=== PATIENT | female | born 2000 | race Caucasian/White ===

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

== ENCOUNTER 2020-01-12 19:12 | Outpatient (CLI) | payer MEDICAID ==
[2020-01-12] VITALS (8 sets, daily range): BP systolic 102–122; BP diastolic 50–75
[~2020-01-12] VITALS: Ht 165.1 cm; Wt 85.0 kg
--- NOTE | 2020-01-12 19:18 | NUR ---
KILO MEDELLIN presented to unit via ambulation from ED, with c/o Bra[place]en Arnold CONTRACTIONS and vomiting. KILO MEDELLIN weighed, gowned, voided, and to bed. EFHM and TOCO applied, VS taken. KILO MEDELLIN oriented to bed controls, call light, TV, heat, and A/C controls.
[2020-01-12] MEDS ORDERED: D5 LR IV SOLUTION 1,000 ML IV SCH (20:00)
[2020-01-12] MEDS ORDERED: ONDANSETRON 4 MG/2 ML (SDV) Z0FRAN IVP ONE (20:00)
[2020-01-12 21:22] LABS: BILIRUBIN,URINE NEGATIVE (NEGATIVE); CLARITY,URINE CLEAR; COLOR,URINE YELLOW; GLUCOSE, URINE (UA) NEGATIVE (NEGATIVE); KETONES,URINE 2+ (NEGATIVE); LEUKOCYTE ESTERASE ,URINE 1+ (NEGATIVE); NITRITE,URINE NEGATIVE (NEGATIVE); PH,URINE 6.5 (5-9); PROTEIN,URINE NEGATIVE (NEGATIVE)
[2020-01-12 21:29] LABS: BACTERIA,URINE TRACE /HPF; SQUAMOUS EPITHELIAL CELL,UR 0-2 /HPF; WBC,URINE RARE /HPF
--- NOTE | 2020-01-12 22:10 | NUR ---
Discharge instructions discussed with pt. Pt denies any questions. Signature sheet signed, placed on chart. Pt ambulating off unit to private vehicle at time. No distress noted.
--- NOTE | 2020-01-14 09:25 | Physician Query-Final Dx ---
NATALYA TONY 01/14/20 0925: Clinic Account Progress/Dx Physician Query: Please give diagnosis Please include # weeks gestation Date of Service Jan 12, 2020 at 19:12 ROZ REINA MD 01/14/20 1136: Clinic Account Progress/Dx DIAGNOSIS: Diagnosis False labor at 35 weeks gestation NATALYA TONY Jan 14, 2020 09:25 ROZ REINA MD Jan 14, 2020 11:36
== END 2020-01-12 22:10 | disposition home or self-care (01) ==
LOC: WSo 19:12 → LDRP 19:13 → WSo 22:10
PROVIDERS: ATTEND Obstetrics & Gynecology
DX: O47.03 False labor before 37 completed weeks of gestation, third trimester (principal); Z3A.35 35 weeks gestation of pregnancy
CPT/HCPCS: 81000

== ENCOUNTER 2020-01-28 07:00 | Inpatient (IN) | payer MEDICAID ==
[~2020-01-28] VITALS: Ht 165.1 cm; Wt 85.6 kg
[2020-01-28] VITALS (52 sets, daily range): BP systolic 100–141; BP diastolic 50–98
--- NOTE | 2020-01-28 07:12 | NUR ---
KILO MEDELLIN presented to unit via ambulation, accompanied by s/o ,for scheduled IOL. Pt. weighed, gowned, voided, and to bed. EFHM and TOCO applied, VS taken. Pt. oriented to bed controls, call light, TV, heat, and A/C controls.
[2020-01-28] MEDS ORDERED: OXYTOCIN PRE-MIX DRIP 500 ML IV ONE (07:24)
[2020-01-28] MEDS ORDERED: D5 LR IV SOLUTION 1,000 ML IV ONE (07:24)
[2020-01-28] MEDS ORDERED: OXYTOCIN PRE-MIX DRIP 500 ML IV SCH ×2 (07:27→18:48)
[2020-01-28] MEDS: D5 LR IV SOLUTION 1,000 ML IV SCH ×2 (07:32→14:12)
--- NOTE | 2020-01-28 07:32 | NUR ---
#20g IV to Lt.hand x1 attempt by this RN. site patent, secured with opsite. admission labs collected from site prior to IVF's infusing. pt tolerated well.
--- NOTE | 2020-01-28 07:34 | History & Physical ---
History and Physical Date Seen by Provider: Jan 28, 2020 Time Seen by Provider: 07:31 This patient is a 19-year-old 2 para 1 female with an EDC of February 13, 2020 putting her now 38 weeks gestation. Her is complicated by thrombocytopenia. Her platelet count has been as low as 93,000 with last few weeks most recent was just over 100,000. CBC is pending today. GBS culture was negative. Patient presents for induction of labor due to her thrombocytopenia. She denies rupture membranes or bleeding. Allergies are to Honey and Zoloft Medications are vitamins Medical surgical and social histories are per the antepartum record HEENT exam is normal Neck is supple no lymphadenopathy no thyromegaly Abdomen gravid soft nontender nondistended Extremities show no clubbing or cyanosis. There is no Homans sign. Pelvic exam is pending Assessment and plan term at 38 weeks gestation with history of thrombocytopenia. Patient is admitted now for induction of labor. We anticipate a vaginal delivery. Platelet count is pending 38 week gestation with thrombocytopenia Allergies and Home Medications Allergies Coded Allergies: honey (Verified Allergy, Unknown, 06/21/19) sertraline (Verified Allergy, Unknown, 07/30/18) Home Medications Vits #93/Iron Fum/FA 1 Each Tablet, 1 EACH PO DAILY, (Reported) Patient Home Medication List Home Medication List Reviewed: Yes ROZ REINA MD Jan 28, 2020 07:34
[2020-01-28 07:58] LABS: BASOPHILS % (AUTO) 0 % (0-10); EOSINOPHILS # (AUTO) 0.1 10^3/uL (0.0-0.3); EOSINOPHILS % (AUTO) 1 % (0-10); HEMATOCRIT 29 % (35-52); HEMOGLOBIN 9.8 G/DL (11.5-16.0); LYMPHOCYTES # (AUTO) 1.8 X 10^3 (1.0-4.0); LYMPHOCYTES % (AUTO) 24 % (12-44); MEAN CORPUSCULAR HEMOGLOBIN 30 PG (25-34); MEAN CORPUSCULAR HGB CONC 33 G/DL (32-36); MEAN CORPUSCULAR VOLUME 90 FL (80-99); MEAN PLATELET VOLUME 13.4 FL (7.4-10.4); MONOCYTES # (AUTO) 0.6 X 10^3 (0.0-1.0); MONOCYTES % (AUTO) 8 % (0-12); NEUTROPHILS % (AUTO) 68 % (42-75); PLATELET COUNT 110 10^3/uL (130-400); RED CELL DISTRIBUTION WIDTH 15.4 % (10.0-14.5); WHITE BLOOD COUNT 7.5 10^3/uL (4.3-11.0)
[2020-01-28] MEDS ORDERED: ONDANSETRON 4 MG/2 ML (SDV) Z0FRAN IVP ONE (08:30)
[2020-01-28] MEDS ORDERED: ONDANSETRON 4 MG/2 ML (SDV) Z0FRAN ONE (08:33)
[2020-01-28] MEDS ORDERED: LACTATED RINGERS 1,000 ML IV ONE ×3 (12:02→12:57)
[2020-01-28] MEDS ORDERED: BUPIVACAINE 0.25% 30 ML (SENSORCAINE) VIAL ONE (12:59)
[2020-01-28] MEDS ORDERED: LIDOCAINE PF 2% 5 ML (XYLOCAINE) VIAL ONE (12:59)
[2020-01-28] MEDS ORDERED: fentaNYL 2 mcg/ml BUPIVA 0.125 100 ML ONE (12:59)
--- NOTE | 2020-01-28 12:59 | NUR ---
PEPE Patel here for epidural placement. Procedure explained, consent reviewed and signed by anesthesia. Questions answered to patient's satisfaction. Time out taken to verify correct patient/procedure. 1301- Patient up to side of bed, assisted into sitting position. Betadine prep done x3 and sterile drape applied. 1311- Local done, see anesthesia record. 1315-Test dose given, see anesthesia record for drug and dosage. Epidural catheter secured in place. Epidural placement complete. 1320- Assisted back into bed, monitors adjusted. Epidural dosed, see anesthesia record. 1323- Epidural of Sufenta/Fentanyl @12cc/hr stated per pump. Patient tolerated procedure well.
[2020-01-28] MEDS ORDERED: EPIDURAL (fentaNYL 2 MCG/ML BUPIVA 0.125%)100 ML BAG EPI PRN (13:00)
[2020-01-28] MEDS ORDERED: ONDANSETRON 4 MG/2 ML (SDV) Z0FRAN IV PRN (13:00)
[2020-01-28] MEDS ORDERED: NALOXONE 0.4 MG/ML 1 ML (NARCAN) VIAL IV PRN (13:00)
[2020-01-28] MEDS ORDERED: fentaNYL INJECTION 100 MCG/2 ML AMP ONE (13:00)
--- NOTE | 2020-01-28 17:10 | NUR ---
was called with SVE update.
[2020-01-28] MEDS ORDERED: KETOROLAC 30 MG/ML VIAL ONE (18:49)
[2020-01-28] MEDS: KETOROLAC 30 MG/ML VIAL IVP SCH ×2 (18:51→23:56)
[2020-01-28] MEDS ORDERED: BENZOCAINE/MENTHOL (DERMOPLAST) 60 ML CAN TP PRN (19:00)
[2020-01-28] MEDS ORDERED: TETANUS,DIPTH,PERTUSS P/F (BOOSTRIX) 0.5 ML VIAL IM ONE (19:00)
[2020-01-28] MEDS ORDERED: oxyCODONE/APAP 5/325MG (PERCOCET 5) TABLET PO PRN (19:00)
[2020-01-28] MEDS ORDERED: ONDANSETRON 4 MG/2 ML (SDV) Z0FRAN IVP PRN (19:00)
[2020-01-28] MEDS ORDERED: MEASLES,MUMPS,RUBELLA 1 EA INJ SC ONE (19:00)
--- NOTE | 2020-01-28 19:18 | NUR ---
report given to NICOLA Serrano.
[2020-01-28] MEDS ORDERED: WITCH HAZEL(TUCKS) 40 EA JAR TOP PRN (20:00)
[2020-01-28] MEDS: DOCUSATE SODIUM 100 MG (COLACE) CAP PO SCH (20:16)
--- NOTE | 2020-01-29 03:03 | OPERATIVE REPORT ---
DATE OF SERVICE: 01/28/2020 DELIVERY NOTE The patient delivered by term spontaneous vaginal delivery a viable male with Apgars of 8 and 9 at 1 and 5 minutes respectively, weight of 6 pounds 6 ounces, time of 17:29 and a cord blood pH is pending. The infant was delivered over an intact perineum under epidural analgesia. A single nuchal cord was easily released and the delivery completed. The was bulb suctioned on delivery of the head on completion of delivery. The umbilical cord when pulseless was doubly clamped, the father cut the cord, the baby was passed to mom's abdomen. Cord bloods were obtained. The placenta delivered spontaneously Morse. It was normal with a 3-vessel cord. The cervix, vagina, rectum, and perineum were examined and found intact, except for superficial bilateral periurethral abrasions that were hemostatic and did not require repair. Sponge and needle counts were correct on completion of the delivery and the post-delivery inspection. Blood loss was minimal in the range of 25 to 30 mL. The patient tolerated the delivery well and remained in the LDR for recovery. The baby remained with the mom. Job ID: [id number] DocumentID: [id number] Dictated Date: 01/28/2020 17:49:38 Crop Quantitative Geneticist Date: 01/29/2020 03:02:14 Dictated By: ROZ REINA MD
[2020-01-29 04:50] VITALS: BP 105/66
[2020-01-29] MEDS: KETOROLAC 30 MG/ML VIAL IVP SCH (07:24)
--- NOTE | 2020-01-29 08:30 | NUR ---
DR. ARANGO IN TO SEE . PLAN FOR CIRCUMCISION.
[2020-01-29] MEDS: DOCUSATE SODIUM 100 MG (COLACE) CAP PO SCH ×2 (08:32→20:49)
--- NOTE | 2020-01-29 08:34 | Anesthesia-Regional Post-Op ---
Regional Patient Condition Mental Status: Alert, Oriented x3 Circulation: Same as Pre-Op Headache: Absent Sensation: Full Recovery Motor Block: Absent Post Op Complications Complications None Follow Up Care/Instructions Patient Instructions None needed. Anesthesia/Patient Condition Patient is doing well, no complaints, stable vital signs, no apparent adverse anesthesia problems. No complications reported per nursing. IVA ILN CRNA Jan 29, 2020 08:34
[2020-01-29 08:45] VITALS: BP 106/57
--- NOTE | 2020-01-29 08:45 | NUR ---
A.M. ASSESSMENT COMPLETED. VSS. SET UP SHOWER.
--- NOTE | 2020-01-29 10:25 | NUR ---
TDAP GIVEN IM IN LEFT DELTOID. SITE CLEAR. CARING FOR IN ROOM. HAS BEEN IN ASSISTING PT. SEE NOTES.
[2020-01-29] MEDS ORDERED: IBUPROFEN 800 MG (MOTRIN) TAB PO ONE (11:24)
--- NOTE | 2020-01-29 11:30 | NUR ---
DR. REINA HERE TO SEE PT.
--- NOTE | 2020-01-29 11:38 | Progress Note ---
Standard Progress Note Progress Notes/Assess & Plan Date Seen by a Provider: Jan 29, 2020 Time Seen by a Provider: 11:36 Progress/Assessment & Plan This patient is without complaint. She is ambulating, voiding, tolerating oral intake and has good pain control. Vital Signs 01/28/20 01/29/20 17:19 08:45 Temp 36.4 Pulse 63 Resp 18 B/P (MAP) 106/57 (73) Pulse Ox 99 O2 Delivery Room Air O2 Flow Rate 15.00 Vital signs are stable. Patient is afebrile. The abdomen is benign. The fundus is firm below the umbilicus and nontender. Extremities show no clubbing or cyanosis. There is no Homans sign. Assessment and plan day number 1 status post term spontaneous vaginal delivery doing well. Plan is for routine convalescence care with discharge home on day one or 2 as patient desires Final Diagnosis 38 week spontaneous vaginal delivery ROZ REINA MD Jan 29, 2020 11:37
[2020-01-29] MEDS ORDERED: OXYC1TAB87 PO (11:39)
[2020-01-29] MEDS ORDERED: IBUP-1780 PO (11:39)
[2020-01-29] MEDS ORDERED: DCS100C PO (11:39)
--- NOTE | 2020-01-29 11:40 | Discharge Inst-Surgical ---
Discharge Inst-Surgical Depart Medication/Instructions New, Converted or Re-Newed RX: RX on Chart Consults/Follow Up Patient Instructions: As directed Orders & Referrals Follow Up Appt: Call to make follow up appt. for patient in 4 weeks. Activity Per routine post vaginal delivery instructions. Please call in RX to patient pharmacy. Diet as tolerated Patient may shower or tub bathe as desired. Activity Activity as Tolerated: No Diet Discharge Diet: No Restrictions ROZ REINA MD Jan 29, 2020 11:40
[2020-01-29] MEDS: IBUPROFEN 800 MG (MOTRIN) TAB PO SCH ×4 (12:19→23:11)
[2020-01-29 12:30] VITALS: BP 105/66
--- NOTE | 2020-01-29 13:30 | NUR ---
STORK MEAL EATEN.
--- NOTE | 2020-01-29 16:00 | NUR ---
CONTINUES TO CARE FOR IN ROOM. GOOD INTERACTION NOTED.
[2020-01-29 16:15] VITALS: BP 100/54
--- NOTE | 2020-01-29 18:30 | NUR ---
INFANT RETURNED TO PARENTS. PT OFFERS NO COMPLAINTS. S.O. AT BEDSIDE.
[2020-01-29 20:49] VITALS: BP 124/72
--- NOTE | 2020-01-29 20:49 | NUR ---
VSS, sched colace given w/fresh ice water, shift assessment completed, no prob. noted. POC reviewed, pt. verbalized understanding. Pt. requesting to have her mother bring food to the hospital, states SO "needs food because he is diabetic & his blood sugar is low, he can't go down to get the food." SO just returned to the floor from vending machine approx 20-30 minutes prior to this. SO was yelling from the bathroom upon this RN entering the room, appeared to be yelling @ pt, SO quiet while I was in room, did not leave bathroom. Will cont. to monitor.
[2020-01-30 02:00] VITALS: BP 107/68
[2020-01-30] MEDS: IBUPROFEN 800 MG (MOTRIN) TAB PO SCH ×2 (05:05→11:48)
--- NOTE | 2020-01-30 07:42 | Progress Note ---
Standard Progress Note Progress Notes/Assess & Plan Date Seen by a Provider: Jan 30, 2020 Time Seen by a Provider: 07:41 Progress/Assessment & Plan This patient is without complaint. She is ambulating, voiding, tolerating oral intake and has good pain control. Vital Signs 01/28/20 01/29/20 17:19 08:45 Temp 36.4 Pulse 63 Resp 18 B/P (MAP) 106/57 (73) Pulse Ox 99 O2 Delivery Room Air O2 Flow Rate 15.00 Vital signs are stable. Patient is afebrile. The abdomen is benign. The fundus is firm below the umbilicus and nontender. Extremities show no clubbing or cyanosis. There is no Homans sign. Assessment and plan day number 1 status post term spontaneous vaginal delivery doing well. Plan is for routine convalescence care with discharge home on day one or 2 as patient desires January 30, 2020 Patient is without complaint. She is ambulating, voiding, tolerating oral intake well has good pain control. Patient is requesting discharge home. Vital Signs Date Time Temp Pulse Resp B/P (MAP) Pulse Ox O2 Delivery O2 Flow Rate FiO2 01/30/20 02:00 36.5 66 18 107/68 (81) 99 Room Air 01/29/20 20:49 36.4 65 18 124/72 (89) 98 Room Air 01/29/20 16:15 36.6 62 18 100/54 (69) 98 Room Air 01/29/20 12:30 36.9 66 18 105/66 (79) 98 Room Air 01/29/20 08:45 36.4 63 18 106/57 (73) 99 Room Air Vital signs are stable. Patient is afebrile. Fundus is firm below the umbilicus and nontender. Extremities show no clubbing cyanosis. There is no Homans sign. Assessment and plan day number 2 status post term spontaneous vaginal delivery at 38 weeks gestation. Patient is doing well and will be discharged home with follow-up in clinic Final Diagnosis 38 week spontaneous vaginal delivery ROZ REINA MD Jan 30, 2020 07:42
[2020-01-30 08:30] VITALS: BP 111/56
--- NOTE | 2020-01-30 08:30 | NUR ---
A.M. ASSESSMENT COMPLETED. VSS. S.O. ASLEEP AT BEDSIDE. ANXIOUS TO GET TO GO TODAY. INFANT ASLEEP AT BEDSIDE.
[2020-01-30] MEDS: DOCUSATE SODIUM 100 MG (COLACE) CAP PO SCH (08:58)
--- NOTE | 2020-01-30 10:00 | NUR ---
DR. ARANGO HERE TO SEE .
--- NOTE | 2020-01-30 10:25 | NUR ---
MEDICAL SCHEDULER HERE TO SEE PT AND S.O. SEE SS NOTES.
--- NOTE | 2020-01-30 10:45 | NUR ---
CM/SS: Visited with pt as per consult for young mother and possible conflict with significant other Plan: Pt will discharge to home with significant other and baby Summary: Pt had just finished visiting with the Dr prior to this workers visit. Pt seems to be having a good day, she reports that she feels ok. Significant other is on his cell phone and not engaged in the conversation. This worker talks with pt, she reports that she has had WIC for her 11month old daughter and she will need to get new baby signed up for WIC. 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 She reports she will be off for a while, she is given information about Healthy Families and to three. She appreciates the information. This worker then engages significant other. He gets up from the bed and puts on his shirt and shoes. He does report he is from this area and is related to 90% of [place]. Pt reports that her mother is taking care of the baby at this time, and they have good support. Significant other shares he is Type I diabetic and did not play any sports when in high school, and that he went to each area high school. The two of them met through a mutual friend. 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 She reports stopping her medication when she was with her new baby. She is encouraged to talk with her doctor about her medication and restarting them, as it helped her in the past. She is open to doing so. Pt thanks this worker for visiting, and is wished well.
--- NOTE | 2020-01-30 12:00 | NUR ---
DISCHARGE INSTRUCTIONS REVIEWED WITH COPY TO PT. STATES UNDERSTANDING OF ALL INSTRUCTIONS AND NEED TO F/U SCHEDULED AND NEEDED.
[2020-01-30 12:25] VITALS: BP 111/56
--- NOTE | 2020-01-30 12:25 | NUR ---
DISMISSED FROM [facility] VIA W/C WITH TO FAMILY CAR IN STABLE CONDITION ACC BY Sebastián AND KENDAL CHENG RN.
== END 2020-01-30 12:25 | disposition home or self-care (01) | DRG 807 ==
LOC: LDRP 07:05
PROVIDERS: ADMIT Obstetrics & Gynecology; ATTEND Obstetrics & Gynecology
PROC: 10E0XZZ Delivery of Products of Conception, External Approach (ICD-10-PCS; principal; 2020-01-28)
PROC: 3E033VJ Introduction of Other Hormone into Peripheral Vein, Percutaneous Approach (ICD-10-PCS; 2020-01-28)
DX: O99.12 Other diseases of the blood and blood-forming organs and certain disorders involving the immune mechanism complicating childbirth (principal); Z37.0 Single live birth; D69.6 Thrombocytopenia, unspecified; O69.81X0 Labor and delivery complicated by cord around neck, without compression, not applicable or unspecified; Z3A.38 38 weeks gestation of pregnancy; Z23 Encounter for immunization
CPT/HCPCS: 36415; 85025; 90715

== ENCOUNTER 2020-11-03 11:33 | Emergency (ER) | payer MEDICAID ==
[~2020-11-03] VITALS: Ht 165 cm; Wt 68.0 kg
[~2020-11-03 11:33] MED LIST changes: +DCS100C PO; +IBUP-1780 PO
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
[2020-11-03] MEDS ORDERED: QUET50TA PO (12:19)
== END 2020-11-03 12:26 | disposition home or self-care (01) ==
LOC: EDUNIT# 11:33 → ER 11:35
DX: F31.9 Bipolar disorder, unspecified (principal); G43.909 Migraine, unspecified, not intractable, without status migrainosus; Z88.8 Allergy status to other drugs, medicaments and biological substances
CPT/HCPCS: 99283

== ENCOUNTER 2021-01-19 14:48 | Emergency (ER) | payer MEDICAID ==
[~2021-01-19] VITALS: Ht 165.1 cm; Wt 65.0 kg
[~2021-01-19 14:48] MED LIST changes: +QUET50TA PO
[2021-01-19 15:19] LABS: BILIRUBIN,URINE NEGATIVE (NEGATIVE); CLARITY,URINE CLEAR; COLOR,URINE YELLOW; GLUCOSE, URINE (UA) NEGATIVE (NEGATIVE); KETONES,URINE NEGATIVE (NEGATIVE); LEUKOCYTE ESTERASE ,URINE 3+ (NEGATIVE); NITRITE,URINE POSITIVE (NEGATIVE); PH,URINE 7.5 (5-9); PROTEIN,URINE 1+ (NEGATIVE)
--- NOTE | 2021-01-19 15:21 | ED Back Pain ---
General Chief Complaint: Back Problems Stated Complaint: LOWER BACK PAIN/ CHILLS Source of Information: Patient Exam Limitations: No Limitations History of Present Illness Date Seen by Provider: Jan 19, 2021 Time Seen by Provider: 15:09 Initial Comments This is a well-appearing 20-year-old female presents to the ER with complaints of bilateral flank pain, chills. States that she had a urinary tract infection approximately month ago and was prescribed antibiotics but she did not have them filled. She is having increased difficulty urinating along with frequency. Denies hematuria. Last menstrual period was December 27. He said pain in her back started yesterday morning. Currently rating 5/10, constant, ache. Allergies and Home Medications Allergies Coded Allergies: honey (Verified Allergy, Unknown, 06/21/19) sertraline (Verified Allergy, Unknown, 07/30/18) Home Medications Ciprofloxacin HCl 500 Mg Tablet, 500 MG PO BID Prescribed by: MEGHAN BRASWELL on 01/19/21 1640 Docusate Sodium 100 Mg Capsule, 100 MG PO BID Prescribed by: ROZ ANDREWS on 01/29/20 1139 Ibuprofen 800 Mg Tablet, 800 MG PO Q6H Prescribed by: ROZ ANDREWS on 01/29/20 1139 Oxycodone HCl/Acetaminophen 1 Each Tablet, 1 TAB PO Q4H PRN for PAIN-MODERATE (5-7) Prescribed by: ROZ ANDREWS on 01/29/20 1139 Vits #93/Iron Fum/FA 1 Each Tablet, 1 EACH PO DAILY, (Reported) Quetiapine Fumarate 50 Mg Tablet, 50 MG PO BID 1 tablet twice a day on day 1 then 2 tablets twice a day on day 2 and thereafter Prescribed by: HI CLINTON on 11/03/20 1219 Patient Home Medication List Home Medication List Reviewed: Yes Review of Systems Constitutional: see HPI EENTM: no symptoms reported Respiratory: no symptoms reported Cardiovascular: no symptoms reported Gastrointestinal: no symptoms reported Genitourinary: see HPI : No LMP: Jan 28, 2020 Control/STD Prophylaxis: None Musculoskeletal: no symptoms reported Skin: no symptoms reported Psychiatric/Neurological: No Symptoms Reported Past [place]-Enwbdc-Ztuomd Hx Patient Social History Type Used: Cigarettes 2nd Hand Smoke Exposure: No Recent Hopitalizations: No Immunizations Up To Date Tetanus Booster (TDap): More than 5yrs PED Vaccines UTD: Yes Date of Influenza Vaccine: Jul 04, 2019 Seasonal Allergies Seasonal Allergies: Yes Past Medical History Surgeries: Yes (nose cauterized,) Adenoidectomy, Nose, Tonsillectomy Respiratory: No Cardiac: No Neurological: No Headaches /Migraines Reproductive Disorders: No Sexually Transmitted Disease: No HIV/AIDS: No Genitourinary: Yes ("KIDNEYS GAVE OUT"-1st trimester) Gastrointestinal: Yes Gastroesophageal Reflux Musculoskeletal: No Endocrine: No HEENT: Yes (FREQUENT NOSE BLEEDS, wears glasses) Tonsilitis Loss of Vision: Denies Hearing Impairment: Denies Cancer: No Psychosocial: Yes (OVERDOSE APPROX 2 YEARS AGO) Anxiety, Depression Integumentary: No Blood Disorders: No Family Medical History Cardiovascular disease 19 MOTHER FH: pulmonary embolism (mother) Hypertension 19 MOTHER Thyroid disease (mother, grandmother) Physical Exam Vital Signs Vital Signs - First Documented 01/19/21 15:06 Temp 37.1 Pulse 120 Resp 20 B/P (MAP) 136/76 (96) Pulse Ox 97 O2 Delivery Room Air Capillary Refill : Height, Weight, BMI Height: 5'4.00" Weight: 198lbs. 0.2oz. 89.820778mr; 24.00 BMI Method:Stated General Appearance: No Apparent Distress, WD/WN HEENT: PERRL/EOMI, Normal ENT Inspection, Pharynx Normal Neck: Full Range of Motion, Normal Inspection, Non Tender, Supple Cardiovascular: Regular Rate, Rhythm, No Murmur, Normal Peripheral Pulses Respiratory: Lungs Clear, Normal Breath Sounds, No Accessory Muscle Use Gastrointestinal: Normal Bowel Sounds, Non Tender, Soft Back: Normal Inspection, No CVA Tenderness, No Vertebral Tenderness Extremity: Normal Capillary Refill, Normal Inspection, Normal Range of Motion Neurologic/Psychiatric: Alert, Oriented x3, No Motor/Sensory Deficits, Normal Mood/Affect Skin: Normal Color, Warm/Dry Progress/Results/Core Measures Results/Orders Lab Results Laboratory Tests Test 01/19/21 15:06 01/19/21 15:34 Range/Units Urine Color YELLOW Urine Clarity CLEAR Urine pH 7.5 5-9 Urine Specific [place] 1.010 L 1.016-1.022 Urine Protein 1+ H NEGATIVE Urine Glucose (UA) NEGATIVE NEGATIVE Urine Ketones NEGATIVE NEGATIVE Urine Nitrite POSITIVE H NEGATIVE Urine Bilirubin NEGATIVE NEGATIVE Urine Urobilinogen 2.0 < = 1.0 MG/DL Urine Leukocyte Esterase 3+ H NEGATIVE Urine RBC (Auto) 1+ H NEGATIVE Urine RBC 2-5 H /HPF Urine WBC >100 H /HPF Urine Squamous Epithelial Cells 2-5 /HPF Urine Crystals NONE /LPF Urine Bacteria LARGE H /HPF Urine Casts NONE /LPF Urine Mucus NEGATIVE /LPF Urine Culture Indicated YES Urine Test NEGATIVE NEGATIVE White Blood Count 10.1 4.3-11.0 10^3/uL Red Blood Count 3.82 3.80-5.11 10^6/uL Hemoglobin 11.7 11.5-16.0 g/dL Hematocrit 35 35-52 % Mean Corpuscular Volume 91 80-99 fL Mean Corpuscular Hemoglobin 31 25-34 pg Mean Corpuscular Hemoglobin Concent 34 32-36 g/dL Red Cell Distribution Width 12.8 10.0-14.5 % Platelet Count 126 L 130-400 10^3/uL Mean Platelet Volume 13.0 H 9.0-12.2 fL Immature Granulocyte % (Auto) 0 % Neutrophils (%) (Auto) 83 H 42-75 % Lymphocytes (%) (Auto) 7 L 12-44 % Monocytes (%) (Auto) 8 0-12 % Eosinophils (%) (Auto) 1 0-10 % Basophils (%) (Auto) 0 0-10 % Neutrophils # (Auto) 8.4 H 1.8-7.8 X 10^3 Lymphocytes # (Auto) 0.8 L 1.0-4.0 X 10^3 Monocytes # (Auto) 0.9 0.0-1.0 X 10^3 Eosinophils # (Auto) 0.1 0.0-0.3 10^3/uL Basophils # (Auto) 0.0 0.0-0.1 10^3/uL Immature Granulocyte # (Auto) 0.0 0.0-0.1 10^3/uL Sodium Level 139 135-145 MMOL/L Potassium Level 3.2 L 3.6-5.0 MMOL/L Chloride Level 104 98-107 MMOL/L Carbon Dioxide Level 25 21-32 MMOL/L Anion Gap 10 5-14 MMOL/L Blood Urea Nitrogen 5 L 7-18 MG/DL Creatinine 0.80 0.60-1.30 MG/DL Estimat Glomerular Filtration Rate > 60 BUN/Creatinine Ratio 6 Glucose Level 86 70-105 MG/DL Calcium Level 9.5 8.5-10.1 MG/DL Corrected Calcium 9.3 8.5-10.1 MG/DL Total Bilirubin 0.6 0.1-1.0 MG/DL Aspartate Amino Transf (AST/SGOT) 10 5-34 U/L Alanine Aminotransferase (ALT/SGPT) 7 0-55 U/L Alkaline Phosphatase 55 40-136 U/L Total Protein 6.6 6.4-8.2 GM/DL Albumin 4.2 3.2-4.5 GM/DL Smear Scan YES Micro Results Microbiology 01/19/21 Urine Culture - Final, Complete Escherichia coli My Orders Orders - MEGHAN BRASWELL APRN Urine Bedside (01/19/21 14:51) Ua Culture If Indicated (01/19/21 14:50) Cbc With Automated Diff (01/19/21 15:20) Comprehensive Metabolic Panel (01/19/21 15:20) Urine Culture (01/19/21 15:06) Ceftriaxone (Rocephin) (01/19/21 15:45) Hcg,Qualitative Urine (01/19/21 15:06) Medications Given in ED Vital Signs/I&O 01/19/21 01/19/21 15:06 17:08 Temp 37.1 Pulse 120 81 Resp 20 16 B/P (MAP) 136/76 (96) 112/64 Pulse Ox 97 99 O2 Delivery Room Air Room Air Progress Progress Note : Progress Note Patient examined and in no acute distress. Labs reviewed and are unremarkable. UA + for UTI. Has no white count elevation. However, she does have chills and nausea which could represent her urinary tract infection ascending to the kidneys. Orders given for Rocephin 1 g IM. Reinforced the importance of pickin g up her medications and completing the full course. She verbalized understanding. Reviewed discharge plan of care and she is agreeable with plan. Departure Impression Primary Impression: Acute pyelonephritis Disposition: 01 HOME, SELF-CARE Condition: Improved Departure-Patient Inst. Decision time for Depature: 16:35 Referrals: [facility] (PCP/Family) Primary Care Physician Patient Instructions: Kidney Infection (DC) Add. Discharge Instructions: Plan: 1. Take antibiotics as directed and complete full course. 2. Drink plenty of fluids to keep your urine light yellow. 3. May take Tylenol or Ibuprofen as needed for pain. 4. Follow up with your doctor if your symptoms persist. 5. Return for any new, concerning, or worsening symptoms. All discharge instructions reviewed with patient and/or family. Voiced understanding. Scripts Ciprofloxacin HCl (Ciprofloxacin HCl) 500 Mg Tablet 500 MG PO BID for 7 Days, #14 TAB Prov: MEGHAN BRASWELL INSPECTOR WREATH 01/19/21 MEGHAN BRASWELL INSPECTOR WREATH Jan 19, 2021 15:21
[2021-01-19 15:32] LABS: BACTERIA,URINE LARGE /HPF; WBC,URINE >100 /HPF
[2021-01-19] MEDS ORDERED: cefTRIAXone 1,000 MG in WATER (STERILE) FOR INJECTION 10 ML IV ONE (15:45)
[2021-01-19 16:02] LABS: HCG,QUALITATIVE URINE NEGATIVE (NEGATIVE)
[2021-01-19 16:14] LABS: ALBUMIN 4.2 GM/DL (3.2-4.5); CHLORIDE 104 MMOL/L (98-107); POTASSIUM 3.2 MMOL/L (3.6-5.0); SODIUM 139 MMOL/L (135-145)
[2021-01-19 16:15] LABS: CALCIUM 9.5 MG/DL (8.5-10.1)
[2021-01-19 16:16] LABS: BASOPHILS % (AUTO) 0 % (0-10); EOSINOPHILS # (AUTO) 0.1 10^3/uL (0.0-0.3); EOSINOPHILS % (AUTO) 1 % (0-10); GLUCOSE 86 MG/DL (70-105); HEMATOCRIT 35 % (35-52); HEMOGLOBIN 11.7 g/dL (11.5-16.0); LYMPHOCYTES # (AUTO) 0.8 X 10^3 (1.0-4.0); LYMPHOCYTES % (AUTO) 7 % (12-44); MEAN CORPUSCULAR HEMOGLOBIN 31 pg (25-34); MEAN CORPUSCULAR HGB CONC 34 g/dL (32-36); MEAN CORPUSCULAR VOLUME 91 fL (80-99); MONOCYTES # (AUTO) 0.9 X 10^3 (0.0-1.0); MONOCYTES % (AUTO) 8 % (0-12); NEUTROPHILS # (AUTO) 8.4 X 10^3 (1.8-7.8); NEUTROPHILS % (AUTO) 83 % (42-75); PLATELET COUNT 126 10^3/uL (130-400); TOTAL PROTEIN 6.6 GM/DL (6.4-8.2); WHITE BLOOD COUNT 10.1 10^3/uL (4.3-11.0)
[2021-01-19 16:17] LABS: CARBON DIOXIDE 25 MMOL/L (21-32)
[2021-01-19 16:18] LABS: BILIRUBIN,TOTAL 0.6 MG/DL (0.1-1.0)
[2021-01-19 16:19] LABS: ALKALINE PHOSPHATASE 55 U/L (40-136)
[2021-01-19 16:20] LABS: GFR ESTIMATED > 60
[2021-01-19 16:21] LABS: BUN/CREATININE RATIO 6
[2021-01-19 16:23] LABS: ALANINE AMINOTRANSFERASE 7 U/L (0-55)
[2021-01-19 16:40] LABS: SMEAR SCAN COMMENT YES
[2021-01-19] MEDS ORDERED: CIPR500T5 PO (16:40)
[2021-01-19 17:08] VITALS: BP 112/64
== END 2021-01-19 17:08 | disposition home or self-care (01) ==
LOC: EDUNIT# 14:48 → ER 14:50
DX: N10 Acute pyelonephritis (principal); F32.9 Major depressive disorder, single episode, unspecified; Z79.899 Other long term (current) drug therapy
CPT/HCPCS: 36415; 80053; 81000; 84703; 85025; 87077; 87088; 87186; 99284

== ENCOUNTER 2021-11-22 12:31 | Emergency (ER) | payer MEDICAID ==
[~2021-11-22] VITALS: Ht 165 cm; Wt 64.0 kg
[~2021-11-22 12:31] MED LIST changes: +CIPR500T5 PO; -DCS100C PO; +DOCU-239 PO; -SULF1TAB35 PO; +SULF1TAB38 PO
--- NOTE | 2021-11-22 12:58 | ED Head Injury ---
General Chief Complaint: Upper Extremity Stated Complaint: R HAND INJ Source: patient, other Exam Limitations: no limitations History of Present Illness Date Seen by Provider: Nov 22, 2021 Time Seen by Provider: 12:47 Initial Comments The patient presents to the ER by private conveyance with her significant other and chief complaint that she is having pain in her right hand under her fifth digit after she "gently closed a car door at home on her hand." She states this happened about half an hour prior and she has not take anything for the pain nor has she had any ice. No prior injuries or surgery to the hand. She has a history of Tourette's but no other significant medical history. Patient is a right-handed. Allergies and Home Medications Allergies Coded Allergies: honey (Verified Allergy, Unknown, 06/21/19) sertraline (Verified Allergy, Unknown, 07/30/18) Patient Home Medication List Home Medication List Reviewed: Yes Ciprofloxacin HCl (Ciprofloxacin HCl) 500 Mg Tablet, 500 MG PO BID Prescribed by: MEGHAN BRASWELL on 01/19/21 1640 Docusate Sodium (Dok) 100 Mg Capsule, 100 MG PO BID Prescribed by: ROZ ANDREWS on 01/29/20 1139 Ibuprofen (Ibuprofen) 800 Mg Tablet, 800 MG PO Q6H Prescribed by: ROZ ANDREWS on 01/29/20 1139 Oxycodone HCl/Acetaminophen (Percocet 5-325 mg Tablet) 1 Each Tablet, 1 TAB PO Q4H PRN for PAIN-MODERATE (5-7) Prescribed by: ROZ ANDREWS on 01/29/20 1139 Vits #93/Iron Fum/FA ( Formula Tablet) 1 Each Tablet, 1 EACH PO DAILY, (Reported) Entered as Reported by: CARMELA MAYEN on 07/30/18 1730 Quetiapine Fumarate (Seroquel) 50 Mg Tablet, 50 MG PO BID Prescribed by: HI CLINTON on 11/03/20 1219 Review of Systems Review of Systems Constitutional: No chills, No fever Eyes: Denies Blindness, Denies Drainage Ears, Nose, Mouth, Throat: denies ear pain, denies nose pain Respiratory: No cough, No phlegm Cardiovascular: No chest pain, No edema Gastrointestinal: No abdominal pain, No nausea Genitourinary: No discharge, No dysuria All Other Systems Reviewed Negative Unless Noted: Yes Past Hrxtowb-Ayixoj-Twsbwc Hx Patient Social History Tobacco Use?: No Use of E-Cig and/or Vaping dev: No Immunizations Up To Date Tetanus Booster (TDap): More than 5yrs PED Vaccines UTD: Yes Seasonal Allergies Seasonal Allergies: Yes Past Medical History Surgeries: Yes (nose cauterized,) Adenoidectomy, Nose, Tonsillectomy Respiratory: No Cardiac: No Neurological: No Headaches /Migraines Reproductive Disorders: No Sexually Transmitted Disease: No HIV/AIDS: No Genitourinary: Yes ("KIDNEYS GAVE OUT"-1st trimester) Gastrointestinal: Yes Gastroesophageal Reflux Musculoskeletal: No Endocrine: No HEENT: Yes (FREQUENT NOSE BLEEDS, wears glasses) Tonsilitis Loss of Vision: Denies Hearing Impairment: Denies Cancer: No Psychosocial: Yes (OVERDOSE APPROX 2 YEARS AGO) Anxiety, Depression Integumentary: No Blood Disorders: No Family Medical History Cardiovascular disease 19 MOTHER FH: pulmonary embolism (mother) Hypertension 19 MOTHER Thyroid disease (mother, grandmother) Physical Exam Vital Signs Vital Signs - First Documented 11/22/21 12:48 Temp 36.1 Pulse 69 Resp 18 B/P (MAP) 119/67 (84) Pulse Ox 98 O2 Delivery Room Air Capillary Refill : Height, Weight, BMI Height: 5'4.00" Weight: 198lbs. 0.2oz. 89.138388mw; 23.00 BMI Method:Stated General Appearance: WD/WN, mild distress HEENT: PERRL/EOMI, pharynx normal Neck: full range of motion, supple, normal inspection Cardiovascular: normal peripheral pulses, regular rate, rhythm Respiratory: no respiratory distress, no accessory muscle use Extremities: other (Decreased range of motion around the fourth and fifth digit related to pain, erythema and swelling of the fifth metacarpal on the right hand. Left hand unremarkable. Otherwise full range of motion of thumb and first 3 fingers.) Psychiatric: alert, oriented x 3 Coordination/Gait: normal gait Motor/Sensory: no motor deficit, no sensory deficit Skin: normal color, warm/dry Harris Coma Score Best Eye Response: (4) Open Spontaneously Best Verbal Response: (5) Oriented Best Motor Response: (6) Obeys Commands Harris Total: 15 Progress/Results/Core Measures Results/Orders My Orders Orders - RUTHY,SIMRAN J Acetaminophen Tablet/Caplet (Tylenol T (11/22/21 13:00) Hand, Right, 3 Views (11/22/21 12:51) Medications Given in ED Current Medications Medications Dose Ordered Sig/Galen Route Start Time Stop Time Status Last Admin Dose Admin Acetaminophen 650 mg ONCE ONCE PO 11/22/21 13:00 11/22/21 13:01 DC 11/22/21 12:59 650 MG Vital Signs/I&O 11/22/21 11/22/21 12:48 12:59 Temp 36.1 36.1 Pulse 69 Resp 18 B/P (MAP) 119/67 (84) Pulse Ox 98 O2 Delivery Room Air Progress Progress Note : Time: 12:56 Progress Note Ice pack, 650 mg of Tylenol and plain films of the right hand. Neurologically and vascularly she is intact. Diagnostic Imaging Diagonstic Imaging: Xray Plain Films/CT/US/NM/MRI: hand (Right) Comments [facility], [place] NAME: KILO MEDELLIN [facility] REC#: [id number] PT STATUS: REG ER : 2000 PHYSICIAN: SIMRAN BLISS MD ADMIT DATE: 11/22/21/ER Draft Date of Exam:11/22/21 HAND, RIGHT, 3 VIEWS EXAM: HAND, RIGHT, 3 VIEWS INDICATION: Right hand trauma and pain. COMPARISON: None FINDINGS: No fracture or malalignment. Soft tissue shadows are unremarkable. IMPRESSION: Negative right hand radiographs. Dictated on workstation # [id number] Dict: 11/22/21 1322 Trans: 11/22/21 1323 [facility] [phone] Interpreted by: MEHNAZ ZARCO MD Electronically signed by: Reviewed: Reviewed by Me Departure Impression Primary Impression: Contusion of right hand, initial encounter Disposition: 01 HOME, SELF-CARE Condition: Stable Departure-Patient Inst. Decision time for Depature: 13:30 Referrals: [facility] (PCP/Family) Primary Care Physician Patient Instructions: Hand Pain (DC) Add. Discharge Instructions: Ice 20 minutes on every 2 hours for the first 2 days as needed for swelling and pain. Keep the hand elevated above the level of your heart to reduce swelling. Keep the splint on or at least an Ramu wrap for compression for the first 1 to 2 weeks. Do not lift more than 5 pounds with your right hand for the next 2 weeks. If you are not seeing some improvement in 1 to 2 weeks then follow-up with your primary care doctor for reexamination. Tylenol 1000 mg every 8 hours as needed for pain. Ibuprofen 800 mg every 8 hours as needed for pain. All discharge instructions reviewed with patient and/or family. Voiced understanding. Work/School Note: Work Release Form Date Seen in the Emergency Department: Nov 22, 2021 Return to Work: Nov 23, 2021 Restrictions: Need Release from Doctor Other Restrictions Listed Below: Do not lift greater than 5 pounds with right hand until 11/29/2021. Restrictions: Do not lift greater than 20 pounds with the R hand until after 12/06/2021. SIMRAN BLISS Nov 22, 2021 12:58
[2021-11-22] MEDS ORDERED: ACETAMINOPHEN 325 MG TABLET PO ONE (13:00)
--- NOTE | 2021-11-22 13:24 | Diagnostic Imaging Report ---
EXAM: HAND, RIGHT, 3 VIEWS INDICATION: Right hand trauma and pain. COMPARISON: None FINDINGS: No fracture or malalignment. Soft tissue shadows are unremarkable. IMPRESSION: Negative right hand radiographs. Dictated by: Dictated on workstation # [id number]
[2021-11-22 13:43] VITALS: BP 119/67
== END 2021-11-22 13:43 | disposition home or self-care (01) ==
LOC: EDUNIT# 12:31 → ER 12:32
DX: S60.221A Contusion of right hand, initial encounter (principal); W23.1XXA Caught, crushed, jammed, or pinched between stationary objects, initial encounter
CPT/HCPCS: 73130

== ENCOUNTER 2023-04-05 12:10 | Outpatient (CLI) | payer MEDICAID ==
[~2023-04-05] VITALS: Ht 165.1 cm; Wt 72.6 kg
[2023-04-05 12:43] VITALS: BP 131/69
[2023-04-05 12:54] LABS: BILIRUBIN,URINE NEGATIVE (NEGATIVE); CLARITY,URINE CLEAR; COLOR,URINE YELLOW; GLUCOSE, URINE (UA) NEGATIVE (NEGATIVE); KETONES,URINE 4+ (NEGATIVE); NITRITE,URINE NEGATIVE (NEGATIVE); PH,URINE 6.5 (5-9); PROTEIN,URINE NEGATIVE (NEGATIVE)
[2023-04-05 12:55] LABS: BACTERIA,URINE MODERATE /HPF; LEUKOCYTE ESTERASE ,URINE 2+ (NEGATIVE); RBC,URINE RARE /HPF
[2023-04-05] MEDS ORDERED: NS IV 1000 ML 1,000 ML IV SCH ×2 (13:15)
[2023-04-05] MEDS ORDERED: ONDANSETRON INJECTION 4 MG/2 ML (SDV) IVP ONE (13:15)
[2023-04-05 18:00] VITALS: BP 111/64
[2023-04-05] MEDS ORDERED: hydrOXYzine 25 MG CAPSULE PO ONE (18:45)
[2023-04-05 19:21] VITALS: BP 121/68
[2023-04-05] MEDS ORDERED: TERBUTALINE INJ 1 MG/ML (BRETHINE) AMP SC ONE (19:45)
[2023-04-05 21:01] VITALS: BP 124/61
== END 2023-04-05 21:01 | disposition home or self-care (01) ==
LOC: LDRP 12:10 → WSo 12:10
PROVIDERS: ATTEND Family Medicine
DX: O21.9 Vomiting of pregnancy, unspecified (principal); O99.891 Other specified diseases and conditions complicating pregnancy; R10.9 Unspecified abdominal pain; Z3A.00 Weeks of gestation of pregnancy not specified
CPT/HCPCS: 81000; 87088; 96360; 96361; 96372; 96375; 99213

== ENCOUNTER 2023-04-08 17:54 | Outpatient (CLI) | payer MEDICAID ==
[~2023-04-08] VITALS: Ht 162.6 cm; Wt 73.4 kg
[2023-04-08 18:05] VITALS: BP 125/73
[2023-04-08 18:19] VITALS: BP 125/73
[2023-04-08 18:34] LABS: BACTERIA,URINE MODERATE /HPF; BILIRUBIN,URINE NEGATIVE (NEGATIVE); CLARITY,URINE CLEAR; COLOR,URINE YELLOW; GLUCOSE, URINE (UA) NEGATIVE (NEGATIVE); KETONES,URINE NEGATIVE (NEGATIVE); LEUKOCYTE ESTERASE ,URINE 1+ (NEGATIVE); NITRITE,URINE NEGATIVE (NEGATIVE); PROTEIN,URINE NEGATIVE (NEGATIVE)
[2023-04-08] MEDS ORDERED: CEPHALEXIN 250 MG CAPSULE PO NR (19:30)
--- NOTE | 2023-04-12 08:06 | Physician Query-Final Dx ---
Clinic Account Progress/Dx Physician Query: Please give diagnosis Please include # weeks gestation Date of Service Apr 08, 2023 at 17:54 ,AugApr 12, 2023 08:06
== END 2023-04-08 19:47 | disposition home or self-care (01) ==
LOC: WSo 17:54 → LDRP 17:54 → WSo 19:47
PROVIDERS: ATTEND Family Medicine
DX: O26.899 Other specified pregnancy related conditions, unspecified trimester (principal); Z3A.00 Weeks of gestation of pregnancy not specified
CPT/HCPCS: 81000; 87088; G0463; 99213

== ENCOUNTER 2023-05-17 18:30 | Inpatient (IN) | payer MEDICAID ==
[~2023-05-17] VITALS: Ht 162.6 cm; Wt 76.2 kg
[2023-05-17] VITALS (19 sets, daily range): BP systolic 105–137; BP diastolic 55–84
[2023-05-17] MEDS ORDERED: D5 LR 1,000 ML IV SOLN 1,000 ML IV SCH (19:15)
[2023-05-17] MEDS ORDERED: LACTATED RINGERS 1,000 ML 500 ML IV PRN (19:15)
[2023-05-17] MEDS ORDERED: MINERAL OIL 30 ML UDC TOP PRN (19:15)
[2023-05-17 19:39] LABS: BASOPHILS % (AUTO) 0 % (0-10); EOSINOPHILS # (AUTO) 0.1 10^3/uL (0.0-0.3); EOSINOPHILS % (AUTO) 0 % (0-10); HEMATOCRIT 32 % (35-52); HEMOGLOBIN 10.8 g/dL (11.5-16.0); LYMPHOCYTES # (AUTO) 1.7 10^3/uL (1.0-4.0); LYMPHOCYTES % (AUTO) 13 % (12-44); MEAN CORPUSCULAR HEMOGLOBIN 31 pg (25-34); MEAN CORPUSCULAR HGB CONC 34 g/dL (32-36); MEAN CORPUSCULAR VOLUME 92 fL (80-99); MEAN PLATELET VOLUME 12.8 fL (9.0-12.2); MONOCYTES # (AUTO) 0.8 10^3/uL (0.0-1.0); MONOCYTES % (AUTO) 6 % (0-12); NEUTROPHILS # (AUTO) 10.9 10^3/uL (1.8-7.8); NEUTROPHILS % (AUTO) 81 % (42-75); PLATELET COUNT 136 10^3/uL (130-400); WHITE BLOOD COUNT 13.5 10^3/uL (4.3-11.0)
[2023-05-17] MEDS ORDERED: fentaNYL 2 mcg/ml BUPIVA 0.125 100 ML ONE (19:47)
[2023-05-17] MEDS ORDERED: LACTATED RINGERS 1,000 ML 1,000 ML IV ONE (19:47)
[2023-05-17] MEDS ORDERED: D5 LR 1,000 ML IV SOLN 1,000 ML IV ONE (20:11)
[2023-05-17] MEDS ORDERED: fentaNYL INJECTION 100 MCG/2 ML VIAL ONE (20:17)
--- NOTE | 2023-05-17 20:25 | History & Physical-OB ---
TIKI RINALDI 05/17/232024: OB - Chief Complaint & HPI Date/Time Date of Admission: Date of Admission: May 17, 2023 at 19:12 Date seen by a Provider: May 17, 2023 Time Seen by a Provider: 19:00 Chief Complaint/History OB-Reason for Admission/Chief: Onset of Labor Hx : 3 Hx Para: 2 Hx Last Menstrual Period: 08/09/2022 Expected Date of Delivery: May 22, 2023 Gestational Age in Weeks: 39 Gestational Age in Days: 2 Admission Nurse Assessment Rev: Yes Allergies and Home Medications Allergies Coded Allergies: honey (Verified Allergy, Unknown, 06/21/19) sertraline (Verified Allergy, Unknown, 07/30/18) Patient Home Medication List Home Medication List Reviewed: Yes Vits #93/Iron Fum/FA ( Formula Tablet) 1 Each Tablet, 1 EACH PO DAILY, (Reported) Entered as Reported by: CARMELA MAEYN on 07/30/18 7650 OB - History Hx of Present Care: Yes Ultrasounds: Normal mid trimester US Obstetrical Complications: None Medical Complications: Psychiatric Information Induced Hypertension: No Maternal Gestational Diabetes: No Hemorrhage: No Obstetrical History Hx : 3 Hx Para: 2 Hx # Pregnancies: 2 Number of Living Children: 2 Hx Termination: No Hx Total # of Abortions (Spona: 0 Hx Multiple Gestation: No Hx Ectopic : No Hx Stillbirth: No Hx Complication: No Hx Induced Hypertens: No Hx Maternal Gestational Diabet: No Hx Hemorrhage: No Delivery History Hx Dystocia: No Hx Forceps Assisted Delivery: No Hx Vacuum Extraction Assisted: No Hx Placenta Abnormality: No Hx Distress: No Hx Large For Gestational Age I: No Hx Small for Gestational Age I: No Hx Section: No Hx Vaginal Delivery Post C-Sec: No Hx Blood Disorders: No Adverse Rxn to Tranfusion: No Patient Past Medical History Anxiety Bipolar II LIZBET Tic disorder Migraine without aura Social History/Family History Alcohol Use: Denies Use Recreational Drug Use: No Smoking Cessation: Current every day smoker (Vape) 2nd Hand Smoke Exposure: No Immunizations Influenza Vaccine Up-to-Date: Yes; Up-to-Date Hepatitis A: No Hepatitis B: Yes Tetanus Booster (TDap): Less than 5yrs Rubella: not immune RPR/VDRL: Negative GBS Status: Negative HBsAG: Negative OB - Admission Exam Physical Exam Vitals: Vital Signs 05/17/23 18:52 Temp 36.7 Pulse 107 Resp 18 B/P (MAP) 133/74 Pulse Ox 99 O2 Delivery Room Air HEENT: NCAT Heart: Rhythm Normal Lungs: Clear Abdomen: Gravid Extremities: Normal Reflexes: Normal Cervical Dilatation: 4cm Effacement: 75% Station: -2 Membranes: Intact Accelerations: Accelerations Present Decelerations: No Decelerations Short Term Variability: Present Lubricating Engineer Variability: Minimal (3-5) Contractions on Admission: 6-10 Minutes Apart Date/Time Contractions Began;: 05/17/2023 Intensity: Moderate Labs Laboratory Tests Test 05/17/23 19:30 Range/Units White Blood Count 13.5 H 4.3-11.0 10^3/uL Red Blood Count 3.50 L 3.80-5.11 10^6/uL Hemoglobin 10.8 L 11.5-16.0 g/dL Hematocrit 32 L 35-52 % Mean Corpuscular Volume 92 80-99 fL Mean Corpuscular Hemoglobin 31 25-34 pg Mean Corpuscular Hemoglobin Concent 34 32-36 g/dL Red Cell Distribution Width 14.6 H 10.0-14.5 % Platelet Count 136 130-400 10^3/uL Mean Platelet Volume 12.8 H 9.0-12.2 fL Immature Granulocyte % (Auto) 0 % Neutrophils (%) (Auto) 81 H 42-75 % Lymphocytes (%) (Auto) 13 12-44 % Monocytes (%) (Auto) 6 0-12 % Eosinophils (%) (Auto) 0 0-10 % Basophils (%) (Auto) 0 0-10 % Neutrophils # (Auto) 10.9 H 1.8-7.8 10^3/uL Lymphocytes # (Auto) 1.7 1.0-4.0 10^3/uL Monocytes # (Auto) 0.8 0.0-1.0 10^3/uL Eosinophils # (Auto) 0.1 0.0-0.3 10^3/uL Basophils # (Auto) 0.0 0.0-0.1 10^3/uL Immature Granulocyte # (Auto) 0.1 0.0-0.1 10^3/uL Syphilis Total Antibody Negative Negative OB - Assessment/Plan/Diagnosis Assessment Assessment: active labor Admission Dx Active labor Admission Status: Inpatient Order (span 2 midnights) Reason for Inpatient Admission: Active labor Plan Plan: Expectant Management RAPHAEL ROJO MD 05/17/23 2220: Allergies and Home Medications Allergies Coded Allergies: honey (Verified Allergy, Unknown, 06/21/19) sertraline (Verified Allergy, Unknown, 07/30/18) Patient Home Medication List Vits #93/Iron Fum/FA ( Formula Tablet) 1 Each Tablet, 1 EACH PO DAILY, (Reported) Entered as Reported by: CARMELA MAYEN on 07/30/18 7358 Supervisory-Addendum Brief Supervisory Addendum Verification and Attestation of Medical Student E/M Service A medical student performed and documented this service in my presence. I reviewed and verified all information documented by the medical student and made modifications to such information, when appropriate. I personally performed the physical exam and medical decision making. Raphael Rojo, May 17, 2023,22:19 TIKI RINALDI May 17, 2023 20:25 RAPHAEL ROJO MD May 17, 2023 22:20
[2023-05-17] MEDS ORDERED: ONDANSETRON INJECTION 4 MG/2 ML (SDV) IV PRN (20:45)
[2023-05-17] MEDS ORDERED: LACTATED RINGERS 1,000 ML 1,000 ML IV SCH (20:45)
[2023-05-17] MEDS ORDERED: diphenhydrAMINE INJ 50 MG/ML VIAL IV PRN (20:45)
[2023-05-17] MEDS ORDERED: NALOXONE 0.4 MG/ML 1 ML VIAL IV PRN ×2 (20:45)
[2023-05-17] MEDS ORDERED: METOCLOPRAMIDE INJ 10 MG/2 ML IV PRN (20:45)
[2023-05-17] MEDS ORDERED: fentaNYL 2 mcg/ml BUPIVA 0.125 100 ML EPI SCH (20:45)
[2023-05-17] MEDS ORDERED: OXYTOCIN DRIP PRE-MIX 500 ML IV ONE ×2 (21:28→22:46)
[2023-05-17] MEDS ORDERED: ONDANSETRON INJECTION 4 MG/2 ML (SDV) ONE (21:37)
[2023-05-17] MEDS ORDERED: CATHETER FLUSH 10 ML SYR IV SCH (22:00)
[2023-05-17] MEDS: OXYTOCIN DRIP PRE-MIX 500 ML IV SCH ×2 (22:11→22:48)
--- NOTE | 2023-05-17 22:24 | OB Labor & Delivery Record ---
Vag Delivery Note Vag Delivery Note Date of Delivery: 05/17/23 Preoperative Diagnosis: Brittany Lorenzo is a (22 /Para 3 / 2, Gestational Age (wks)39.2 wga here in active labor Postoperative Diagnosis: Same Attending Surgeon/Physician: Raphael Rojo MD Sales Representative Trainee: Erwin Zaman MS4 Anesthesia: Epidural Delivery Type: @ 2206 Findings: Viable Female , apgars 8/9, weight 6#11, 3020 grams Lacerations: No Intact placenta with 3 vessel cord. No nuchal cord, body cord or shoulder dys tocia Meconium stained fluid Estimated Blood Loss: 120 ml Complications: None Condition: Stable Description of Procedure: The patient is a 22 year old female who presented in active labor. She was admitted and informed consent was obtained. Her labor course was remarkable for meconium fluid. She progressed to complete dilatation and began to push. She was then set up for delivery. The infant's head was delivered atraumatically in the ALMA position. The shoulders and remainder of the 's body were then delivered without difficulty. Upon delivery, the was vigorous and placed on maternal chest and the mouth and nares were bulb suctioned. After a 2 min delay cord was doubly clamped and cut by FOB and the remained on maternal chest. An intact placenta with 3-vessel cord delivered via Hemanth and there was found to be minimal bleeding.~ Vigorous fundal massage was performed and the fundus was found to be firm. IV oxytocin was given. Examination of the vagina and perineum revealed a no lacerations that required repair. Following the repair, sponge, instrument and needle counts were correct. Mom and baby were both in stable condition in the labor suite. Vitals - Labs Vital Signs - I&O Vital Signs Date Time Temp Pulse Resp B/P (MAP) Pulse Ox O2 Delivery O2 Flow Rate FiO2 05/17/23 21:19 36.6 85 18 98 Room Air 05/17/23 18:52 36.7 107 18 133/74 99 Room Air Labs Laboratory Tests 05/17/23 19:30: White Blood Count 13.5H, Red Blood Count 3.50L, Hemoglobin 10.8L, Hematocrit 32L , Mean Corpuscular Volume 92, Mean Corpuscular Hemoglobin 31, Mean Corpuscular Hemoglobin Concent 34, Red Cell Distribution Width 14.6H, Platelet Count 136, Mean Platelet Volume 12.8H, Immature Granulocyte % (Auto) 0, Neutrophils (%) (Auto) 81H, Lymphocytes (%) (Auto) 13, Monocytes (%) (Auto) 6, Eosinophils (%) (Auto) 0, Basophils (%) (Auto) 0, Neutrophils # (Auto) 10.9H, Lymphocytes # (Auto) 1.7, Monocytes # (Auto) 0.8, Eosinophils # (Auto) 0.1, Basophils # (Auto) 0.0, Immature Granulocyte # (Auto) 0.1, Syphilis Total Antibody Negative RAPHAEL ROJO MD May 17, 2023 22:24
[2023-05-17] MEDS ORDERED: BENZOCAINE/MENTHOL (DERMOPLAST) 56 ML CAN TP PRN (22:30)
[2023-05-17] MEDS ORDERED: DIBUCAINE 1% OINTMENT 28 GM TUBE TOP PRN (22:30)
[2023-05-17] MEDS ORDERED: WITCH HAZEL(TUCKS) 40 EA JAR TOP PRN (22:30)
[2023-05-18 00:04] VITALS: BP 111/64
[2023-05-18] MEDS: IBUPROFEN 600 MG TABLET PO SCH ×4 (00:22→18:26)
[2023-05-18] MEDS: ACETAMINOPHEN 500 MG TABLET PO SCH ×4 (00:23→18:26)
[2023-05-18 04:39] VITALS: BP 119/67
[2023-05-18] MEDS ORDERED: CATHETER FLUSH 10 ML SYR IV SCH (06:00)
[2023-05-18 06:01] LABS: BASOPHILS % (AUTO) 0 % (0-10); MEAN CORPUSCULAR VOLUME 93 fL (80-99); NEUTROPHILS # (AUTO) 10.6 10^3/uL (1.8-7.8)
[2023-05-18 06:04] LABS: EOSINOPHILS % (AUTO) 0 % (0-10); HEMATOCRIT 30 % (35-52); HEMOGLOBIN 9.9 g/dL (11.5-16.0); LYMPHOCYTES # (AUTO) 1.7 10^3/uL (1.0-4.0); LYMPHOCYTES % (AUTO) 13 % (12-44); MEAN CORPUSCULAR HEMOGLOBIN 31 pg (25-34); MEAN CORPUSCULAR HGB CONC 33 g/dL (32-36); MEAN PLATELET VOLUME 13.1 fL (9.0-12.2); MONOCYTES # (AUTO) 0.6 10^3/uL (0.0-1.0); MONOCYTES % (AUTO) 5 % (0-12); NEUTROPHILS % (AUTO) 82 % (42-75); PLATELET COUNT 120 10^3/uL (130-400)
--- NOTE | 2023-05-18 07:15 | Anesthesia-Regional Post-Op ---
Regional Patient Condition Mental Status: Alert, Oriented x3 Circulation: Same as Pre-Op Headache: Absent Sensation: Full Recovery Motor Block: Absent Post Op Complications Complications None Follow Up Care/Instructions Patient Instructions None needed. Anesthesia/Patient Condition Patient is doing well, no complaints, stable vital signs, no apparent adverse anesthesia problems. No complications reported per nursing. BRENDAN CUELLAR CRNA May 18, 2023 07:14
[2023-05-18] MEDS ORDERED: IRON SUCROSE 200 MG/10 ML VIAL IV ONE (07:30)
[2023-05-18] MEDS ORDERED: FERR-74 PO (09:14)
[2023-05-18] MEDS ORDERED: IBUP-844 PO (09:14)
[2023-05-18] MEDS ORDERED: DOCU100C37 PO (09:14)
--- NOTE | 2023-05-18 09:15 | Postpartum Progress Note ---
Note Note Day # 1 Subjective: Patient is without complaints. Ambulating, voiding. Tolerating a regular diet without nausea or vomiting. Normal lochia. Pain is well controlled with oral pain medications. Breast feeding, reports is going pretty well. Objective: Vital Signs 05/18/23 04:39 Temp 36.8 Pulse 72 Resp 18 B/P (MAP) 119/67 (84) Pulse Ox 99 O2 Delivery Room Air Physical Exam: General - Alert and oriented, no apparent distress Heart - RRR, no murmur Lungs - CTAB Abdomen - Soft, appropriately tender to palpation, non-distended, fundus firm at umbilicus Extremities - no edema Assessment: post- day # 1, status post spontaneous vaginal delivery. Recovering well, hemodynamically stable Plan: Routine care. Encourage breast feeding. Encourage ambulation. Ferrous sulfate supplementation. Plan for discharge tomorrow. Vitals - Labs Vital Signs - I&O Vital Signs Date Time Temp Pulse Resp B/P (MAP) Pulse Ox O2 Delivery O2 Flow Rate FiO2 05/18/23 04:39 36.8 72 18 119/67 (84) 99 Room Air 05/18/23 00:04 36.6 76 18 111/64 (80) 100 Room Air 05/17/23 22:45 81 18 133/63 (86) 100 Room Air 05/17/23 22:30 36.1 93 18 137/65 (89) 100 Room Air 05/17/23 22:00 85 18 129/73 (91) 100 Room Air 05/17/23 21:45 80 18 124/71 (88) 100 Room Air 05/17/23 21:25 103 18 117/69 (85) 100 Room Air 05/17/23 21:19 36.6 85 18 98 Room Air 05/17/23 21:15 97 18 126/69 (88) 100 Room Air 05/17/23 21:10 87 18 105/58 (74) 100 Room Air 05/17/23 21:05 36.1 83 18 107/56 (73) 100 Room Air 05/17/23 20:55 86 18 136/75 (95) 99 Room Air 05/17/23 20:50 80 18 114/57 (76) 100 Room Air 05/17/23 20:45 78 18 127/55 (79) Room Air 10/10/23 20:40 84 18 126/76 (93) 100 Room Air 05/17/23 20:36 96 18 128/74 (92) 99 Room Air 05/17/23 20:33 82 18 125/73 (90) 99 Room Air 05/17/23 20:31 82 18 125/78 (94) 99 Room Air 05/17/23 20:28 94 18 133/84 (100) 99 Room Air 05/17/23 20:24 36.2 107 18 128/83 (98) 99 Room Air 05/17/23 18:52 36.7 107 18 133/74 99 Room Air I & O 05/18/23 07:00 Intake Total 3000 ml Balance 3000 ml Labs Laboratory Tests 05/17/23 19:30: White Blood Count 13.5H, Red Blood Count 3.50L, Hemoglobin 10.8L, Hematocrit 32L , Mean Corpuscular Volume 92, Mean Corpuscular Hemoglobin 31, Mean Corpuscular Hemoglobin Concent 34, Red Cell Distribution Width 14.6H, Platelet Count 136, Mean Platelet Volume 12.8H, Immature Granulocyte % (Auto) 0, Neutrophils (%) (Auto) 81H, Lymphocytes (%) (Auto) 13, Monocytes (%) (Auto) 6, Eosinophils (%) (Auto) 0, Basophils (%) (Auto) 0, Neutrophils # (Auto) 10.9H, Lymphocytes # (Auto) 1.7, Monocytes # (Auto) 0.8, Eosinophils # (Auto) 0.1, Basophils # (Auto) 0.0, Immature Granulocyte # (Auto) 0.1, Syphilis Total Antibody Negative 05/18/23 05:50: White Blood Count 13.0H, Red Blood Count 3.20L, Hemoglobin 9.9L, Hematocrit 30L, Mean Corpuscular Volume 93, Mean Corpuscular Hemoglobin 31, Mean Corpuscular Hemoglobin Concent 33, Red Cell Distribution Width 14.3, Platelet Count 120L, Mean Platelet Volume 13.1H, Immature Granulocyte % (Auto) 1, Neutrophils (%) (Auto) 82H, Lymphocytes (%) (Auto) 13, Monocytes (%) (Auto) 5, Eosinophils (%) (Auto) 0, Basophils (%) (Auto) 0, Neutrophils # (Auto) 10.6H, Lymphocytes # (Auto) 1.7, Monocytes # (Auto) 0.6, Eosinophils # (Auto) 0.0, Basophils # (Auto) 0.0, Immature Granulocyte # (Auto) 0.1, Percent Immature Platelet Fraction 15.3H MAYITO GOMEZ MD May 18, 2023 09:15
[2023-05-18 09:53] VITALS: BP 111/67
[2023-05-18] MEDS: DOCUSATE SODIUM 100 MG CAPSULE PO SCH ×2 (09:54→20:54)
[2023-05-18 14:54] VITALS: BP 109/62
[2023-05-18 18:30] VITALS: BP 118/73
[2023-05-19 00:08] VITALS: BP 104/65
[2023-05-19] MEDS: IBUPROFEN 600 MG TABLET PO SCH ×3 (00:08→12:50)
[2023-05-19] MEDS: ACETAMINOPHEN 500 MG TABLET PO SCH ×3 (00:08→12:50)
[2023-05-19 06:09] VITALS: BP 102/69
[2023-05-19] MEDS ORDERED: FERROUS SULFATE 325 MG (IRON) TABLET PO SCH (07:00)
--- NOTE | 2023-05-19 08:20 | Discharge Summary ---
Discharge Summary Hospital Course Hospital Course Date of Admission: May 17, 2023 at 19:12 Admission Diagnosis : Family Physician/Provider: [place]/Counts Include 234 Beds At [facility] Date of Discharge: 05/19/23 Discharge Diagnosis: s/p spontaneous vaginal delivery asymptomatic acute blood loss anemia Hospital Course: Pt admitted in spontaneous labor, had uncomplicated labor, vaginal delivery and course. Had anemia treated with one dose of IV venofer inpatient. Labs and Pending Lab Test: Home Meds Active Docusate Sodium 100 Mg Capsule 100 Mg PO BID Ibu (Ibuprofen) 600 Mg Tablet 600 Mg PO Q6H PRN Reported Formula Tablet ( Vits #93/Iron Fum/FA) 1 Each Tablet 1 Each PO DAILY Assessment/Pt DC Instructions Follow up with Dr. Rojo in 6 weeks for visit. Discharge Diet: No Restrictions Activity as Tolerated: Yes (avoid high intensity activity x 6 weeks) Discharge Physical Examination Allergies: Coded Allergies: honey (Verified Allergy, Unknown, 06/21/19) sertraline (Verified Allergy, Unknown, 07/30/18) General Appearance: No Apparent Distress Respiratory: Lungs Clear, Normal Breath Sounds Cardiovascular: Regular Rate, Rhythm, No Murmur Gastrointestinal: Other (uterus firm, nontender) Extremity: No Pedal Edema Neurologic/Psychiatric: Alert, Normal Mood/Affect MAYITO GOMEZ MD May 19, 2023 08:20
[2023-05-19] MEDS: DOCUSATE SODIUM 100 MG CAPSULE PO SCH (08:56)
[2023-05-19 08:59] VITALS: BP 111/72
[2023-05-19 12:50] VITALS: BP 111/72
== END 2023-05-19 13:30 | disposition home or self-care (01) | DRG 807 ==
LOC: WSo 18:30 → LDRP 18:30 → WSo 19:12 → LDRP 05-18 00:05
PROVIDERS: ADMIT Family Medicine; ATTEND Family Medicine
PROC: 10E0XZZ Delivery of Products of Conception, External Approach (ICD-10-PCS; principal; 2023-05-17)
DX: O99.344 Other mental disorders complicating childbirth (principal); Z37.0 Single live birth; F31.9 Bipolar disorder, unspecified; F41.1 Generalized anxiety disorder; F95.9 Tic disorder, unspecified; O99.334 Smoking (tobacco) complicating childbirth; F17.290 Nicotine dependence, other tobacco product, uncomplicated; Z3A.39 39 weeks gestation of pregnancy; O77.0 Labor and delivery complicated by meconium in amniotic fluid
CPT/HCPCS: 36415; 85025; 86780; 86850; 86900; 86901; 99212